=== PATIENT | male | born 1990 | race Caucasian/White ===

== ENCOUNTER 2022-05-06 12:58 | Emergency (ER) | payer BC ==
[2022-05-06 14:09] LABS: Urine Blood 3+ (Negative); Urine Glucose Negative (Negative); Urine Protein 2+ (Negative); Urine Specific Gravity >=1.030 (1.005-1.030)
[2022-05-06 14:12] LABS: Absolute Lymphocytes (CBC) 2.3 K/uL (0.7-4.9); Hematocrit 44.4 % (39.6-49.0); Lymphocytes % 19.8 % (15.3-44.8); MCV 87.9 fL (80-100); MPV 10.1 fL (7.6-11.3); RBC Red Blood Cell Count 5.05 M/uL (4.33-5.43)
[2022-05-06] MEDS ORDERED: ONDANSETRON 4 MG/2 ML VIAL ONE (14:22)
[2022-05-06] MEDS ORDERED: NA CHLORIDE 0.9% 1,000 ML ONE ×2 (14:23→16:20)
[2022-05-06] MEDS ORDERED: MORPHINE 4 MG/ML SYR ONE (14:23)
[2022-05-06 14:28] LABS: Albumin 4.2 g/dL (3.4-5.0); Bilirubin Total 0.7 mg/dL (0.2-1.0); Potassium 4.1 mmol/L (3.5-5.1); Protein, Total 7.8 g/dL (6.4-8.2)
--- NOTE | 2022-05-06 15:37 | RAD REPORT ---
EXAM DESCRIPTION: CT - Stone Protocol - 05/06/2022 3:04 pm CLINICAL HISTORY: right flank pain, hematuria COMPARISON: No comparisons TECHNIQUE: Axial 3 mm thick images were obtained without oral or IV contrast. The [id number] span s the entirety of the system including uppermost abdomen and lung bases. All CT scans are performed using dose optimization technique as appropriate and may include automated exposure control or mA/KV adjustment according to patient size. FINDINGS: Mild right-sided hydronephrosis present secondary to a 3 mm distal right ureteral calculus approximately 2 cm from the UVJ. Pelvic floor phleboliths are present. No left-sided hydronephrosis. Punctate 2 mm and 3 mm calyx calculi present in the mid right kidney. No left-sided renal calculi. N o suspicious renal masses. Isodense masses and pyelonephritis are not excluded on a stone protocol CT scan. No significant adrenal finding. No urinary bladder suspicious finding. Imaged portions of the liver, spleen and pancreas show no suspicious findings on non-contrast imaging . No gallbladder or biliary tree abnormality identified. No suspicious bowel findings. Hyperdense material is present distal small bowel possibly patient do sted medication. Oral contrast is not typically administered for this study of the quantity is too sm all for typical bowel contrast examination. A few small sub centimeter scattered mesenteric lymph nod es are present. No mass or bulky lymphadenopathy. Fat filled left inguinal hernia is present. No free air, free fluid or inflammatory stranding. No significant bony abnormality. IMPRESSION: Mild right-sided hydronephrosis secondary to a 3 mm distal right ureteral stone approxim ately 2 cm from the bladder. Isodense masses and pyelonephritis are not excluded on stone protocol technique.
[2022-05-06] MEDS ORDERED: TAMSULOSIN 0.4 MG SR CAP ONE (16:19)
[2022-05-06] MEDS ORDERED: KETOROLAC 30 MG/ML INJ ONE (16:20)
--- NOTE | 2022-05-06 16:52 | ER ---
Nurse's Notes [facility] Name: Maynor Vazquez Age: 31 yrs Sex: Male : 1990 Arrival Date: 05/06/2022 Time: 13:01 Bed 26 Private MD: Diagnosis: Calculus of kidney with calculus of ureter Presentation: 05/06 13:26 Chief complaint: Patient states: constipation, vomiting, abdominal pain, flank pain jh5 since yesterday. Coronavirus screen: Vaccine status: Patient reports being unvaccinated. Client denies travel out of the [place] in the last 14 days. Ebola Screen: Patient negative for fever greater than or equal to 101.5 degrees Fahrenheit, and additional compatible Ebola Virus Disease symptoms Patient denies exposure to infectious person. Patient denies travel to an Ebola-affected area in the 21 days before illness onset. Initial Sepsis Screen: Does the patient meet any 2 criteria? No. Patient's initial sepsis screen is negative. Does the patient have a suspected source of infection? No. Patient's initial sepsis screen is negative. Risk Assessment: Do you want to hurt yourself or someone else? Patient reports no desire to harm self or others. Onset of symptoms was May 05, 2022. 13:26 Method Of Arrival: Ambulatory [facility] 13:26 Acuity: RYAN 3 jh5 Triage Assessment: 13:28 General: Appears uncomfortable, obese, unkempt, Behavior is calm, cooperative, jh5 appropriate for age. Pain: Complains of pain in abdomen. GI: Reports lower abdominal pain, constipation, nausea, vomiting, flank pain. Historical: - Allergies: 13:28 No Known Allergies; 5 - Home Meds: 13:28 None [Active]; jh5 - PMHx: 13:28 None; 5 - Immunization history:: Adult Immunizations up to date. - Social history:: Smoking status: Patient denies any tobacco usage or history of. Screenin:29 Abuse screen: Denies threats or abuse. Denies injuries from another. Nutritional 5 screening: No deficits noted. Tuberculosis screening: No symptoms or risk factors identified. Fall Risk None identified. Assessment: 13:53 General: Appears distressed, uncomfortable, Behavior is cooperative, appropriate for ja4 age, anxious. Pain: Complains of pain in abdomen Pain currently is 8 out of 10 on a pain scale. Pain began 1 day ago. Neuro: No deficits noted. GI: Abd is soft Abdomen is tender to palpation X 4 quads. Guarding noted. 15:46 Reassessment: Patient is alert, oriented x 3, equal unlabored respirations, skin ja4 warm/dry/pink. Patient states feeling better. Vital Signs: 13:26 BP 135 / 103; Pulse 78; Resp 18; Temp 98.7; Pulse Ox 99% ; Weight 113.4 kg; Height 5 [facility] ft. 6 in. (167.64 cm); Pain 8/10; 14:50 BP 133 / 101; Pulse 70; Resp 16; Pulse Ox 97% on R/A; ja4 13:26 Body Mass Index 40.35 (113.40 kg, 167.64 cm) [facility] ED Course: 13:01 Patient arrived in ED. [facility] 13:03 Thuan Stewart PA is PHCP. [facility] 13:03 Bruno Augustin DO is Attending Physician. [facility] 13:28 Triage completed. [facility] 13:28 Arm band placed on left wrist. [facility] 13:29 Patient has correct armband on for positive identification. Side rails up X2. Adult w/ 5 patient. 13:29 No provider procedures requiring assistance completed. [facility] 13:43 Carlo Payne, RN is Primary Nurse. 4 14:00 CBC with Diff Sent. 4 14:00 CMP Sent. 4 14:00 Lipase Sent. 4 14:20 Inserted saline lock: 22 gauge in right antecubital area, using aseptic technique. [facility] 15:05 CT Stone Protocol In Process Unspecified. EDMS 16:51 Sahil Barnett MD is Referral Physician. m 17:53 IV discontinued, intact, bleeding controlled, No redness/swelling at site. Pressure iw dressing applied. Administered Medications: 14:29 Drug: NS 0.9% 1000 ml Route: IV; Rate: 1 bolus; Site: right antecubital; ja4 14:29 Drug: morphine 4 mg Route: IVP; Infused Over: 4 mins; Site: right antecubital; [facility] 14:29 Drug: Zofran (Ondansetron) 4 mg Route: IVP; Site: right antecubital; 4 16:14 Drug: Flomax (tamsulosin) 0.4 mg Route: PO; ja4 16:15 Drug: NS 0.9% 1000 ml Route: IV; Rate: 1 bolus; Site: right antecubital; ja4 16:38 Drug: Ketorolac 30 mg Route: IVP; Site: right antecubital; ja4 Medication: 17:53 VIS not applicable for this client. iw Outcome: 16:52 Discharge ordered by . chitra 17:53 Discharged to home ambulatory, with family. iw 17:53 Condition: good 17:53 Discharge instructions given to patient, Instructed on discharge instructions, follow up and referral plans. medication usage, Demonstrated understanding of instructions, follow-up care, medications, Prescriptions given X 3. 17:53 Patient left the ED. iw Signatures: Dispatcher [employer] EDMS Thuan Stewart PA PA jmm Williams, Irene, RN Maureen Hunt4 Gianna Blair RN RN jh5 Carlo Payne RN RN ja4
--- NOTE | 2022-05-06 16:53 | EDPHYS ---
Physician Documentation [facility] Name: Maynor Vazquez Age: 31 yrs Sex: Male : 1990 Arrival Date: 05/06/2022 Time: 13:01 Bed 26 Private MD: ED Physician Bruno Augustin HPI: 05/06 13:29 This 31 yrs old Male presents to ER via Ambulatory with complaints of Abdominal Pain, jmm Back Pain, Vomiting. 13:29 The patient presents with abdominal pain. Onset: The symptoms/episode began/occurred jmm gradually, today. The symptoms radiate to right lower quadrant. Associated signs and symptoms: Pertinent negatives: fever. The symptoms are described as achy. This is a 31 year old male with no chronic medical conditions that presents to the ED with complaints of right flank pain radiating into his rlq. Denies vomiting but states having some nausea. Denies diarrhea but states having sensation of needing to have a BM. . Historical: - Allergies: 13:28 No Known Allergies; [facility] - Home Meds: 13:28 None [Active]; [facility] - PMHx: 13:28 None; [facility] - Immunization history:: Adult Immunizations up to date. - Social history:: Smoking status: Patient denies any tobacco usage or history of. ROS: 13:29 Constitutional: Negative for fever, chills, and weight loss, Cardiovascular: Negative jmm for chest pain, palpitations, and edema, Respiratory: Negative for shortness of breath, cough, wheezing, and pleuritic chest pain. 13:29 Abdomen/GI: Positive for abdominal pain, nausea. 13:29 Back: Positive for flank pain, on the right. 13:29 All other systems are negative. Exam: 13:29 Constitutional: This is a well developed, well nourished patient who is awake, alert, jmm and in no acute distress. Head/Face: atraumatic. Eyes: EOMI, no conjunctival erythema appreciated ENT: Moist Mucus Membranes Neck: Trachea midline, Supple Chest/axilla: Normal chest wall appearance and motion. Cardiovascular: Regular rate and rhythm. No edema appreciated Respiratory: Normal respirations, no respiratory distress appreciated 13:29 Skin: General appearance color normal MS/ Extremity: Moves all extremities, no obvious deformities appreciated, no edema noted to the lower extremities Neuro: Awake and alert Psych: Behavior is normal, Mood is normal, Patient is cooperative and pleasant 13:29 Abdomen/GI: Inspection: abdomen appears normal, Bowel sounds: normal, Palpation: soft, mild abdominal tenderness, in the right lower quadrant, Rectal exam: 13:29 Back: CVA tenderness, that is mild, is noted on the right. Vital Signs: 13:26 BP 135 / 103; Pulse 78; Resp 18; Temp 98.7; Pulse Ox 99% ; Weight 113.4 kg; Height 5 5 ft. 6 in. (167.64 cm); Pain 8/10; 14:50 BP 133 / 101; Pulse 70; Resp 16; Pulse Ox 97% on R/A; ja4 13:26 Body Mass Index 40.35 (113.40 kg, 167.64 cm) 5 MDM: 13:29 Patient medically screened. [facility] 16:49 Data reviewed: vital signs, nurses notes. Counseling: I had a detailed discussion with car the patient and/or guardian regarding: the historical points, exam findings, and any diagnostic results supporting the discharge/admit diagnosis, lab results, radiology results, the need for outpatient follow up, to return to the emergency department if symptoms worsen or persist or if there are any questions or concerns that arise at home. ED course: Patient is alert and non toxic in appearance in the ED. CT reveals stone. Patient advised to follow up with urology and otherwise given strict return precautions. Patient understood and agrees with the plan fo care. . 05/06 13:35 Order name: CBC with Diff; Complete Time: 14:36 [facility] 05/06 13:35 Order name: CMP; Complete Time: 14:36 [facility] 05/06 13:35 Order name: Lipase; Complete Time: 14:36 [facility] 05/06 14:09 Order name: Urine Dipstick-Ancillary; Complete Time: 14:36 [facility] 05/06 14:38 Order name: CT Stone Protocol; Complete Time: 15:39 [facility] 05/06 13:35 Order name: IV Saline Lock; Complete Time: 14:00 [facility] 05/06 13:35 Order name: Labs collected and sent; Complete Time: 14:00 [facility] 05/06 13:35 Order name: Urine Dipstick-Ancillary (obtain specimen); Complete Time: 14:11 [facility] Administered Medications: 14:29 Drug: NS 0.9% 1000 ml Route: IV; Rate: 1 bolus; Site: right antecubital; ja4 14:29 Drug: morphine 4 mg Route: IVP; Infused Over: 4 mins; Site: right antecubital; ja4 14:29 Drug: Zofran (Ondansetron) 4 mg Route: IVP; Site: right antecubital; ja4 16:14 Drug: Flomax (tamsulosin) 0.4 mg Route: PO; ja4 16:15 Drug: NS 0.9% 1000 ml Route: IV; Rate: 1 bolus; Site: right antecubital; ja4 16:38 Drug: Ketorolac 30 mg Route: IVP; Site: right antecubital; ja4 Disposition: 17:51 Co-signature as Attending Physician, Bruno Augustin DO I was immediately available on-site ms3 in the Emergency Department for consultation in the care of the patient.. Disposition Summary: 05/06/22 16:52 Discharge Ordered Location: Home [facility] Condition: Stable [facility] Diagnosis - Calculus of kidney with calculus of ureter [facility] Followup: [facility] - With: Sahil Barnett MD - When: 2 - 3 days - Reason: Recheck today's complaints, Continuance of care, Re-evaluation by your physician Discharge Instructions: - Discharge Summary Sheet [facility] - Kidney Stones [facility] - Dietary Guidelines to Help Prevent Kidney Stones [facility] Forms: - Medication Reconciliation Form [facility] - Thank You Letter [facility] - Antibiotic Education [facility] - Prescription Opioid Use [facility] - Work release form [facility] Prescriptions: - ondansetron 4 mg Oral tablet,disintegrating - take 1 tablet by ORAL route every 4-6 hours As needed; 20 tablet; Refills: 0, [facility] Product Selection Permitted - Ultracet 37.5-325 mg Oral Tablet - take 1 tablet by ORAL route every 6 hours - for up to 5 days; do not exceed 8 [facility] tablets per day.; 12 tablet; Refills: 0, Product Selection Permitted - Flomax 0.4 mg Oral capsule - take 1 capsule by ORAL route once daily 1/2 hour following the same meal each [facility] day; 20 capsule; Refills: 0, Product Selection Permitted Signatures: Dispatcher [employer] Thuan Lal PA PA jmm Sims, Marcus, DO DO ms3 Gianna Blair RN RN jh5 Carlo Payne, RN RN ja4
[2022-05-06 18:05] VITALS: TEMP 98.7
[2022-05-06 18:15] VITALS: BP 133/101; O2SAT 97
== END 2022-05-06 17:53 | disposition home or self-care (01) ==
LOC: ER 12:58
DX: N20.2 Calculus of kidney with calculus of ureter (principal)
CPT/HCPCS: 85025; 36415; 81003; 83690; 80053; 76377; 74176; J7030 ×2; J2405

== ENCOUNTER 2023-04-15 22:32 | Emergency (ER) | payer BC ==
[2023-04-16] MEDS ORDERED: KETOROLAC 30 MG/ML INJ ONE (00:16)
[2023-04-16] MEDS ORDERED: ONDANSETRON 4 MG/2 ML VIAL ONE (00:16)
[2023-04-16 00:22] LABS: Absolute Lymphocytes (CBC) 2.2 K/uL (0.7-4.9); Hematocrit 39.7 % (39.6-49.0); MCV 87.3 fL (80-100); MPV 9.9 fL (7.6-11.3); RBC Red Blood Cell Count 4.55 M/uL (4.33-5.43)
[2023-04-16 00:41] LABS: Albumin 3.9 g/dL (3.4-5.0); Bilirubin Total 0.7 mg/dL (0.2-1.0); Protein, Total 7.4 g/dL (6.4-8.2)
[2023-04-16 00:47] LABS: Specific Gravity 1.024 (1.005-1.030); Urine Bacteria <20 /HPF (<20); Urine Bilirubin NEGATIVE (Negative); Urine Blood 3+ (OVER) (Negative); Urine Clarity Extremely Turbid (Clear); Urine Color Light-Orange (Yellow); Urine Glucose NEGATIVE (Negative); Urine Mucus Slight /HPF (None Seen); Urine Protein 1+ (Negative); Urine RBC >50 /HPF (None Seen); Urine Urobilinogen Normal (Normal); Urine pH 5.5 (5.0-7.0)
[2023-04-16] MEDS ORDERED: NA CHLORIDE 0.9% 1,000 ML ONE (01:45)
--- NOTE | 2023-04-16 01:55 | EDPHYS ---
Physician Documentation [facility] Name: Maynor Vazquez Age: 32 yrs Sex: Male : 1990 Arrival Date: 04/15/2023 Time: 22:32 Bed DIS2 Private MD: ED Physician José Miguel Jaquez HPI: 04/15 23:15 This 32 yrs old Male presents to ER via Ambulatory with complaints of Abdominal Pain, cp Possible Kidney Stone. 23:15 The patient presents with abdominal pain right side of abdomen and right flank. Onset: cp The symptoms/episode began/occurred couple days ago. The symptoms radiate to right back. Associated signs and symptoms: Pertinent positives: nausea, testicular pain, Pertinent negatives: constipation, diarrhea, fever, shortness of breath. The symptoms are described as constant. 23:15 Severity of pain: in the emergency department the pain is unchanged despite home cp interventions. Historical: - Allergies: 23:07 No Known Allergies; kl - Home Meds: 23:07 None [Active]; kl - PMHx: 23:07 kidney stones; kl - PSHx: 23:07 right knee; right ankle; kl - Immunization history:: Adult Immunizations unknown. - Social history:: Smoking status: Patient/guardian denies using tobacco. ROS: 23:20 Constitutional: Negative for body aches, chills, fever, poor PO intake. cp 23:20 Eyes: Negative for injury, pain, redness, and discharge. cp 23:20 ENT: Negative for drainage from ear(s), ear pain, sore throat, difficulty swallowing, difficulty handling secretions. 23:20 Cardiovascular: Negative for chest pain. 23:20 Respiratory: Negative for cough, shortness of breath, wheezing. 23:20 Abdomen/GI: Positive for abdominal pain, nausea. 23:20 Back: Positive for flank pain, on the right, Negative for injury or acute deformity, decreased range of motion. 23:20 Skin: Negative for rash. 23:20 Neuro: Negative for altered mental status, dizziness, headache, numbness, weakness. 23:20 All other systems are negative. Exam: 23:25 Constitutional: The patient appears in no acute distress, alert, awake, non-toxic, well cp developed, well nourished, obese, uncomfortable. 23:25 Head/Face: Normocephalic, atraumatic. 23:25 Eyes: Periorbital structures: appear normal, Conjunctiva: normal, no exudate, no injection, Sclera: no appreciated abnormality, Lids and lashes: appear normal, bilaterally. 23:25 ENT: External ear(s): are unremarkable, Nose: is normal, Mouth: Lips: moist, Oral mucosa: pink and intact, moist, Posterior pharynx: is normal, airway is patent, no erythema, no exudate. 23:25 Chest/axilla: Inspection: normal. 23:25 Cardiovascular: Rate: normal, Rhythm: regular. 23:25 Respiratory: the patient does not display signs of respiratory distress, Respirations: normal, no use of accessory muscles, no retractions, labored breathing, is not present, Breath sounds: are clear throughout, no decreased breath sounds, no stridor, no wheezing. 23:25 Abdomen/GI: Inspection: obese Bowel sounds: active, all quadrants, Palpation: soft, in all quadrants, moderate abdominal tenderness, in the anterior aspect of right lateral abdomen, posterior aspect of right lateral abdomen and right lower quadrant, rebound tenderness, is not appreciated. 23:25 Skin: no rash present. 23:25 Neuro: Orientation: to person, place \T\ time. Mentation: is normal, Motor: moves all fours, strength is normal, Gait: is steady. Vital Signs: 23:05 BP 135 / 102; Pulse 71; Resp 16; Temp 98.1; Pulse Ox 99% on R/A; Weight 120.2 kg; Height 5 ft. 6 in. ; Pain 8/10; 04/16 02:10 BP 102 / 56; Pulse 60; Resp 18; Pulse Ox 99% on R/A; kl 04/15 23:05 Body Mass Index 42.77 (120.20 kg, 167.64 cm) 04/15 23:05 Pain Scale: Adult kl MDM: 04/15 23:18 Patient medically screened. 04/16 00:00 Differential diagnosis: appendicitis, cholecystitis, Cholelithiasis, Pyelonephritis, cp Testicular Torsion, Ureterolithiasis, urinary tract infection. 01:55 Data reviewed: vital signs, nurses notes, lab test result(s), radiologic studies, CT scan. 01:55 I considered the following discharge prescriptions or medication management in the cp emergency department Medications were administered in the Emergency Department. See MAR. Counseling: I had a detailed discussion with the patient and/or guardian regarding: the historical points, exam findings, and any diagnostic results supporting the discharge/admit diagnosis, lab results, radiology results, to return to the emergency department if symptoms worsen or persist or if there are any questions or concerns that arise at home. Response to treatment: the patient's symptoms have markedly improved after treatment, Nausea and pain markedly improved. Will discharge to home for continued monitoring. 04/15 23:07 Order name: CBC with Diff; Complete Time: 00:52 cp 04/15 23:07 Order name: CMP; Complete Time: 00:52 cp 04/16 00:52 Interpretation: Normal except: GLUC 107; GFR 86; ALT 96. cp 04/15 23:07 Order name: Lipase; Complete Time: 00:52 cp 04/16 00:52 Interpretation: Abnormal: LIP 186. 04/15 23:43 Order name: Urinalysis W/Microscopic; Complete Time: 00:52 cp 04/16 00:53 Interpretation: Normal except: [facility] Extremely Turbid; UBLD 3+ (OVER); UPROT 1+; URBC cp >50. 04/15 23:09 Order name: CT Stone Protocol cp 04/15 23:07 Order name: IV Saline Lock; Complete Time: 00:04 cp 04/15 23:07 Order name: Labs collected and sent; Complete Time: 00:04 cp Administered Medications: 04/15 23:58 CANCELLED (Physician Discretion): morphine IVP or IV 4 mg IVP once over 4 mins cp 04/16 00:11 Drug: Ondansetron IVP 4 mg Route: IVP; Site: right antecubital; cm10 00:11 Drug: Ketorolac IVP 15 mg Route: IVP; Site: right antecubital; cm10 01:39 Drug: NS 0.9% IV 1000 ml Route: IV; Rate: 1 bolus; Site: right antecubital; kl Disposition Summary: 04/16/23 01:55 Discharge Ordered Location: Home cp Problem: new cp Symptoms: have improved cp Condition: Stable cp Diagnosis - Calculus of ureter - right cp Followup: cp - With: Sahil Barnett MD - When: 5 - 6 days - Reason: pain continues Discharge Instructions: - Discharge Summary Sheet cp - Kidney Stones cp - Renal Colic cp Forms: - Medication Reconciliation Form cp - Thank You Letter cp - Antibiotic Education cp - Prescription Opioid Use cp - Patient Portal Instructions cp Prescriptions: - Flomax 0.4 mg Oral capsule - take 1 capsule by ORAL route daily; 7 capsule; Refills: 0, Product Selection cp Permitted - Zofran 4 mg Oral Tablet - take 1 tablet by ORAL route every 12 hours As needed; 20 tablet; Refills: 0, cp Product Selection Permitted - Tramadol 50 mg Oral Tablet - take 1 tablet by ORAL route every 8 hours as needed; 12 tablet; Refills: 0, cp Product Selection Permitted Addendum: 04/19/2023 10:00 Co-signature as Attending Physician, José Miguel Jaquez MD I reviewed the patient's care r t provided by the Advanced Practice Provider and agree with the diagnosis and treatment plan. Signatures: Dispatcher [employer] Tereza Burr RN RN kl Page, Corey, BETTIE PA cp José Miguel Jaquez MD MD rt Glenda Butt RN RN cm10 Corrections: (The following items were deleted from the chart) 04/15 23:07 23:07 PSHx: None; eugenia bello 23:58 23:09 morphine IVP or IV 4 mg IVP once over 4 mins ordered. cp cp
--- NOTE | 2023-04-16 01:55 | ER ---
Nurse's Notes [facility] Name: Maynor Vazquez Age: 32 yrs Sex: Male : 1990 Arrival Date: 04/15/2023 Time: 22:32 Bed DIS2 Private MD: Diagnosis: Calculus of ureter-right Presentation: 04/15 23:05 Chief complaint: Patient states: right flank pain that radiates to his RLQ onset a kl couple days ago. Coronavirus screen: Vaccine status: Patient reports being unvaccinated. Ebola Screen: Patient denies travel to an Ebola-affected area in the 21 days before illness onset. No symptoms or risks identified at this time. Initial Sepsis Screen: Does the patient meet any 2 criteria? No. Patient's initial sepsis screen is negative. Does the patient have a suspected source of infection? No. Patient's initial sepsis screen is negative. Risk Assessment: Do you want to hurt yourself or someone else? Patient reports no desire to harm self or others. Onset of symptoms was April 15, 2023. 23:05 Method Of Arrival: Ambulatory kl 23:05 Acuity: RYAN 3 kl Triage Assessment: 23:07 General: Appears in no apparent distress. uncomfortable, Behavior is calm, cooperative. kl Pain: Complains of pain in right flank pain Pain radiates to right lower quadrant. Neuro: No deficits noted. Level of Consciousness is awake, alert, Oriented to person, place, time, situation. Respiratory: No deficits noted. Airway is patent Respiratory effort is even, unlabored, Respiratory pattern is regular, symmetrical. Historical: - Allergies: 23:07 No Known Allergies; kl - Home Meds: 23:07 None [Active]; kl - PMHx: 23:07 kidney stones; kl - PSHx: 23:07 right knee; right ankle; kl - Immunization history:: Adult Immunizations unknown. - Social history:: Smoking status: Patient/guardian denies using tobacco. Screenin/28 01:39 [facility] ED Fall Risk Assessment (Adult) History of falling in the last 3 months, kl including since admission No falls in past 3 months (0 pts) Confusion or Disorientation No (0 pts) Intoxicated or Sedated No (0 pts) Impaired Gait No (0 pts) Mobility Assist Device Used No (0 pt) Altered Elimination No (0 pt) Score/Fall Risk Level 0 - 2 = Low Risk Oriented to surroundings, Maintained a safe environment. Abuse screen: Denies threats or abuse. 01:39 Nutritional screening: No deficits noted. Tuberculosis screening: No symptoms or risk kl factors identified. Assessment: 01:39 Reassessment: Patient appears in no apparent distress at this time. Patient is alert, kl oriented x 3, equal unlabored respirations, skin warm/dry/pink. Patient denies pain at this time. Patient states feeling better. Patient states symptoms have improved. GI: Bowel sounds present X 4 quads. Abd is soft and non tender X 4 quads. Vital Signs: 04/15 23:05 BP 135 / 102; Pulse 71; Resp 16; Temp 98.1; Pulse Ox 99% on R/A; Weight 120.2 kg; kl Height 5 ft. 6 in. ; Pain 8/10; 04/16 02:10 BP 102 / 56; Pulse 60; Resp 18; Pulse Ox 99% on R/A; kl 04/15 23:05 Body Mass Index 42.77 (120.20 kg, 167.64 cm) 04/15 23:05 Pain Scale: Adult ED Course: 04/15 22:35 Patient arrived in ED. [id number] 22:35 Subhash Dimas PA is PHCP. cp 22:35 José Miguel Jaquez MD is Attending Physician. cp 23:07 Triage completed. kl 23:08 Arm band placed on Patient placed in waiting room. kl 23:48 CT Stone Protocol In Process Unspecified. EDMS 04/16 00:04 Urinalysis W/Microscopic Sent. cm10 00:04 Lipase Sent. cm10 00:04 CMP Sent. cm10 00:04 CBC with Diff Sent. cm10 00:04 Initial lab(s) drawn, by va, sent to lab. Inserted saline lock: 20 gauge in right cm10 antecubital area, using aseptic technique. Blood collected. 01:50 No apparent distress. Resting quietly. Appears to be sleeping. kl 01:54 Sahil Barnett MD is Referral Physician. cp 02:10 No provider procedures requiring assistance completed. IV discontinued, intact, kl bleeding controlled, No redness/swelling at site. Pressure dressing applied. 02:11 Patient has correct armband on for positive identification. kl Administered Medications: 04/15 23:58 CANCELLED (Physician Discretion): morphine IVP or IV 4 mg IVP once over 4 mins cp 04/16 00:11 Drug: Ondansetron IVP 4 mg Route: IVP; Site: right antecubital; cm10 00:11 Drug: Ketorolac IVP 15 mg Route: IVP; Site: right antecubital; cm10 01:39 Drug: NS 0.9% IV 1000 ml Route: IV; Rate: 1 bolus; Site: right antecubital; Outcome: 01:55 Discharge ordered by MD. cp 02:10 Discharged to home ambulatory. kl 02:10 Condition: stable 02:10 Discharge instructions given to patient, Instructed on discharge instructions, follow up and referral plans. Demonstrated understanding of instructions, follow-up care, Prescriptions given X 3. 02:11 Patient left the ED. eugenia Signatures: Dispatcher [employer] EDTereza Riley RN RN Subhash Batista, Ofe Rod cp, Clarissa, RN RN cm10 Corrections: (The following items were deleted from the chart) 04/15 23:07 23:07 PSHx: None; eugenia bello
[2023-04-16 02:27] VITALS: TEMP 98.1; O2SAT 99
[2023-04-16 02:28] VITALS: BP 102/56
--- NOTE | 2023-04-16 13:19 | RAD REPORT ---
EXAM DESCRIPTION: CT - Stone Protocol - 04/16/2023 6:16 am CLINICAL HISTORY: The patient is 32 years old and is Male; FLANK PAIN TECHNIQUE: Axial computed tomography images of the abdomen and pelvis without intravenous contrast. Sagittal and coronal reformatted images were created and reviewed. This CT exam was performed usi ng one or more of the following dose reduction techniques: automated exposure control, adjustment o f the mA and/or kV according to patient size, and/or use of iterative reconstruction technique. COMPARISON: No relevant prior studies available. FINDINGS: Lung bases: Unremarkable. No mass. No consolidation. ABDOMEN: Liver: Hepatomegaly with diffuse hepatic steatosis. Gallbladder and bile ducts: Unremarkable. No calcified stones. No ductal dilation. Pancreas: Unremarkable. No ductal dilation. Spleen: Unremarkable. No splenomegaly. Adrenals: Unremarkable. No mass. Kidneys and ureters: 4 mm right UVJ stone. Mild right hydroureteronephrosis. Stomach and bowel: Unremarkable. No obstruction. No mucosal thickening. PELVIS: Appendix: No findings to suggest acute appendicitis. Bladder: Unremarkable. Reproductive: Unremarkable as visualized. ABDOMEN and PELVIS: Intraperitoneal space: Unremarkable. No free air. No significant fluid collection. Bones/joints: No acute fracture. No dislocation. Soft tissues: Unremarkable. Vasculature: Unremarkable. No abdominal aortic aneurysm. Lymph nodes: Unremarkable. No enlarged lymph nodes. IMPRESSION: 4 mm right UVJ stone. Mild right hydroureteronephrosis. Electronically signed by: Nestor Herr MD 04/16/2023 12:31 AM CDT Due to temporary technical issues with the PACS/Fluency reporting system, reports are being signed by the in house radiologists without review as a courtesy to insure prompt reporting. The interpreting radiologist is fully responsible for the content of the report.
== END 2023-04-16 02:11 | disposition home or self-care (01) ==
LOC: ER 22:32
DX: N20.1 Calculus of ureter (principal); Z87.442 Personal history of urinary calculi
CPT/HCPCS: 85025; 81001; 36415; 83690; 80053; 76377; 74176; 96375; 96374; 99284; J2405; J7030